=== PATIENT | male | born 1990 | race African-American/Black ===

== ENCOUNTER 2016-06-23 13:13 | Emergency (ER) | payer SELFPAY ==
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
[2016-06-23] MEDS ORDERED: IBUPROFEN 800 MG TABLET PO ONE (14:21)
[2016-06-23 15:50] VITALS: BP 115/67
== END 2016-06-23 15:49 | disposition home or self-care (01) ==
LOC: ER 13:13
DX: M25.572 Pain in left ankle and joints of left foot (principal); V29.88XA Motorcycle rider (driver) (passenger) injured in other specified transport accidents, initial encounter
CPT/HCPCS: 99283; 73610; L1902